=== PATIENT | male | born 1950 | race Caucasian/White ===

== ENCOUNTER → 2018-05-08 | Outpatient (CLI) | payer MEDICARE ==
--- NOTE | 2018-05-08 15:32 | RADIOLOGY REPORT (SQ) ---
EXAM DESCRIPTION: NM MUGA REST COMPLETED DATE/TIME: 05/08/2018 2:16 pm REASON FOR STUDY: Z08 ENCNTR FOR FOLLOW-UP EXAM AFTER TRTMT FOR MALIGNANT NEOPLASM Z08 ENCNTR FOR F OLLOW-UP EXAM AFTER TRTMT FOR MALIGNANT NEOP Z51.11 ENCOUNTER FOR ANTINEOPLASTIC CHEMOTHERAPY COMPARISON: None. RADIONUCLIDE AND DOSE: 22.8 mCi technetium 99m labeled red blood cells The route of agent administration: Intravenous TECHNIQUE: Following administration of the radionuclide, gated images of the heart are obtained in t hree projections. Left ventricular functional analysis performed. LIMITATIONS: None. FINDINGS: LEFT VENTRICULAR FUNCTION: EJECTION FRACTION: 62%. END-DIASTOLIC VOLUME: 107 mL. END-SYSTOLIC VOLUME: 44 mL. WALL MOTION: No focal wall motion abnormalities. OTHER: No other significant finding. IMPRESSION: NORMAL CARDIAC MUGA STUDY. NORMAL LEFT VENTRICULAR FUNCTION WITH VALUES ABOVE. TECHNICAL DOCUMENTATION: JOB ID: [id number] [email or web address]- All Rights Reserved Reading location - IP/workstation name: [email or web address]
== END ==
LOC: RAD 12:55
PROVIDERS: ATTEND Internal Medicine Hematology & Oncology
DX: Z08 Encounter for follow-up examination after completed treatment for malignant neoplasm (principal); Z51.11 Encounter for antineoplastic chemotherapy
CPT/HCPCS: 78472; A9560; Q9969

== ENCOUNTER → 2018-05-13 | Outpatient (CLI) | payer MEDICARE ==
--- NOTE | 2018-05-14 10:38 | RADIOLOGY REPORT (SQ) ---
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 RADIONUCLIDE AND DOSE: 10 mCi F18 FDG The route of agent administration: Intravenous FASTING BLOOD SUGAR: 79 mg/dl CONTRAST TYPE AND DOSE: No CT contrast given. TECHNIQUE: Blood glucose level was verified. Above dose of FDG was injected intravenously. 2-D seg mented attenuation correction images were obtained from the base of the skull to the midthighs. Nonc ontrast CT images were obtained for attenuation correction and fusion with emission images. CT image s were performed without oral or intravenous contrast and are not sensitive for parenchymal lesions. A series of overlapping emission PET images were obtained. Images reviewed and manipulated at [facility] work station by the radiologist. Images stored on PACS. LIMITATIONS: None. FINDINGS: HEAD AND NECK: No areas of abnormal metabolic activity in the soft tissues of the head and neck. CHEST: There are a few lymph nodes in the left axilla which are not pathologically enlarged. No abno rmal activity. Mean SUV values 1.22 and 1.56. There is right hilar adenopathy, measuring 1.1 x 1.9 cm. Mean SUV 4.48. ABDOMEN AND PELVIS: No areas of abnormal metabolic activity in the abdomen or pelvis. Expected physi ologic activity is present in the genitourinary system and bowel. PROXIMAL LOWER EXTREMITIES: No areas of abnormal metabolic activity in the soft tissues of the lower extremities. BONES: No abnormal metabolic activity in the visualized skeleton. ADDITIONAL CT FINDINGS: No additional significant findings on the noncontrast CT images. OTHER: No other significant findings. Background blood pool activity mean SUV 1.7. Background liver activity mean SUV 2.38. IMPRESSION: 1. RIGHT HILAR ADENOPATHY, PRESUMABLY INDICATING INVOLVEMENT WITH LYMPHOMA. 2. THE PATIENT HAD RECENT POSITIVE LEFT AXILLARY LYMPH NODE BIOPSY. HOWEVER, ON THE CURRENT SCAN THE RE IS NO ABNORMAL AXILLARY ACTIVITY AND NO PATHOLOGICALLY ENLARGED AXILLARY LYMPH NODES. 3. NO OTHER SIGNIFICANT FINDINGS ON PET-CT. TECHNICAL DOCUMENTATION: JOB ID: [id number] [employer]- All Rights Reserved Reading location - IP/workstation name: [email or web address]
== END ==
LOC: RAD 18:47
PROVIDERS: ATTEND Internal Medicine Hematology & Oncology
DX: C83.14 Mantle cell lymphoma, lymph nodes of axilla and upper limb (principal)
CPT/HCPCS: 78815; A9552

== ENCOUNTER → 2018-07-24 | Outpatient (CLI) | payer MEDICARE, OTHER ==
--- NOTE | 2018-07-25 09:00 | RADIOLOGY REPORT (SQ) ---
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 TECHNIQUE: Blood glucose level was verified. Above dose of FDG was injected intravenously. 2-D seg mented attenuation correction images were obtained from the base of the skull to the midthighs. Nonc ontrast CT images were obtained for attenuation correction and fusion with emission images. CT image s were performed without oral or intravenous contrast and are not sensitive for parenchymal lesions. A series of overlapping emission PET images were obtained. Images reviewed and manipulated at [facility] work station by the radiologist. Images stored on PACS. LIMITATIONS: None. FINDINGS: HEAD AND NECK: No areas of abnormal metabolic activity in the soft tissues of the head and neck. CHEST: New area of pleural based focal increased FDG uptake within the right lower lobe measuring up to 2.1 cm (series 3, image 93) (max SUV 9.6). There is an additional new left apical 1 cm nodule (se matt 3, image 69) without significant increased uptake (max SUV 1.5). Bilateral peripheral ground-gl ass opacities with mild FDG uptake. For reference peripheral ground-glass attenuation along the ante rior left upper lobe demonstrates (max SUV 2.8). Previously seen right hilar increased uptake is no longer present. Decreased size of previously seen left axillary lymph nodes. ABDOMEN AND PELVIS: No areas of abnormal metabolic activity in the abdomen or pelvis. Expected physi ologic activity is present in the genitourinary system and bowel. PROXIMAL LOWER EXTREMITIES: No areas of abnormal metabolic activity in the soft tissues of the lower extremities. BONES: No abnormal metabolic activity in the visualized skeleton. OTHER: Background blood pool activity max SUV 2.1. Background liver activity max SUV 2.9 right appr oach PICC tip terminates at SVC. ADDITIONAL CT FINDINGS: As above. IMPRESSION: 1. New 2.1 cm peripheral right lower lobe nodule with increased FDG uptake (max SUV 9.6 ) suspicious for neoplasm. 2. Resolution of previously seen right hilar hypermetabolic activity. Decreased size of the previou sly seen left axillary lymph nodes. 3. Bilateral peripheral ground-glass opacities with mild FDG activity likely infectious/inflammatory . TECHNICAL DOCUMENTATION: JOB ID: [id number] [employer]- All Rights Reserved Reading location - IP/workstation name: [email or web address]
== END ==
LOC: RAD 15:56
PROVIDERS: ATTEND Internal Medicine Hematology & Oncology
DX: C83.14 Mantle cell lymphoma, lymph nodes of axilla and upper limb (principal); R91.1 Solitary pulmonary nodule
CPT/HCPCS: 78815; A9552